=== PATIENT | male | born 1980 | race Caucasian/White ===

== ENCOUNTER 2020-06-18 14:04 | Inpatient (IN) | payer MEDICAID ==
[~2020-06-18] VITALS: Ht 175.3 cm; Wt 92.2 kg
[2020-06-18 14:21] VITALS: Ht 175.3 cm; Wt 92.2 kg
[2020-06-18 15:20] LABS: BASOPHIL % 0.6 % (0.2-1.5); PLATELET COUNT 243 x10^3mcL (152-348); RED CELL DISTRIBUTION WIDTH 12.7 % (12.1-16.2)
[2020-06-18 15:43] LABS: CALCIUM 8.9 mg/dL (8.5-10.1); CARBON DIOXIDE 29.6 mmol/L (21-32); CHLORIDE SERUM 99 mmol/L (98-107); CREATININE SERUM 0.9 mg/dL (0.7-1.3); GFR1 > 60 mL/min; GLUCOSE SERUM 95 mg/dL (74-106); POTASSIUM SERUM 3.3 mmol/L (3.5-5.1); SODIUM SERUM 138 mmol/L (136-145)
[2020-06-18 15:47] LABS: ALBUMIN 3.8 g/dL (3.4-5.0); ALKALINE PHOSPHATASE 99 U/L (46-116); ALT/SGPT 28 U/L (16-63); AMYLASE 31 U/L (25-115); AST/SGOT 15 U/L (15-37); BILIRUBIN TOTAL 1.1 mg/dL (0.20-1.00); LIPASE 50 IU/L (73-393); TOTAL PROTEIN, SERUM 7.9 g/dL (6.4-8.2)
[2020-06-18 19:52] LABS: CHOLESTEROL/HDL RATIO 2.4
[2020-06-18 21:30] LABS: microscopic required? YES; urine erythrocyte TRACE (NEGATIVE)
[2020-06-18 21:47] LABS: AMPHETAMINE QUAL UR NONE DETECTED (See below)
[2020-06-19 03:46] VITALS: BP 127/73
[2020-06-19 08:22] LABS: BASOPHIL % 0.7 % (0.2-1.5); PLATELET COUNT 228 x10^3mcL (152-348); RED CELL DISTRIBUTION WIDTH 12.8 % (12.1-16.2)
[2020-06-19 08:38] LABS: CALCIUM 8.5 mg/dL (8.5-10.1); CARBON DIOXIDE 29.2 mmol/L (21-32); CHLORIDE SERUM 101 mmol/L (98-107); CREATININE SERUM 0.8 mg/dL (0.7-1.3); GFR1 > 60 mL/min; GLUCOSE SERUM 93 mg/dL (74-106); MAGNESIUM 2.4 mg/dL (1.8-2.4); PHOSPHOROUS 3.4 mg/dL (2.5-4.9); POTASSIUM SERUM 3.4 mmol/L (3.5-5.1); SODIUM SERUM 139 mmol/L (136-145)
[2020-06-19 09:29] VITALS: BP 133/82
[2020-06-19 17:04] VITALS: BP 121/67
[2020-06-19 21:04] VITALS: BP 125/70
[2020-06-20 05:38] VITALS: BP 132/74
[2020-06-20 07:57] LABS: CALCIUM 8.5 mg/dL (8.5-10.1); CARBON DIOXIDE 26.4 mmol/L (21-32); CHLORIDE SERUM 103 mmol/L (98-107); CREATININE SERUM 0.8 mg/dL (0.7-1.3); GFR1 > 60 mL/min; GLUCOSE SERUM 106 mg/dL (74-106); MAGNESIUM 2.3 mg/dL (1.8-2.4); POTASSIUM SERUM 3.7 mmol/L (3.5-5.1); SODIUM SERUM 140 mmol/L (136-145)
[2020-06-20 07:59] LABS: BASOPHIL % 0.4 % (0.2-1.5); PLATELET COUNT 248 x10^3mcL (152-348); RED CELL DISTRIBUTION WIDTH 12.7 % (12.1-16.2)
[2020-06-20 08:07] VITALS: BP 104/68
[2020-06-20 09:12] VITALS: BP 116/68
[2020-06-20 11:04] VITALS: BP 116/68
[2020-06-20] MEDS ORDERED: CIPRO500 MG PO (11:05)
[2020-06-20 11:56] VITALS: BP 127/71
== END 2020-06-20 12:55 | disposition home or self-care (01) | DRG 233 ==
LOC: ED 14:04 → MU 18:19
PROVIDERS: Emergency Medicine; Surgery; ADMIT Internal Medicine; ATTEND Internal Medicine
PROC: 0DTJ4ZZ Resection of Appendix, Percutaneous Endoscopic Approach (ICD-10-PCS; principal; 2020-06-19 09:30)
DX: K35.32 Acute appendicitis with perforation, localized peritonitis, and gangrene, without abscess (principal); E66.01 Morbid (severe) obesity due to excess calories; E87.6 Hypokalemia; Z20.828 Contact with and (suspected) exposure to other viral communicable diseases; Z88.0 Allergy status to penicillin; Z68.35 Body mass index [BMI] 35.0-35.9, adult
CPT/HCPCS: G0378; J0694; J0744; J2175; J2543; J3010; J3490; J7030; U0003